=== PATIENT | female | born 1935 | race African-American/Black ===

== ENCOUNTER 2019-02-21 17:47 | Inpatient (IN) | payer MEDICARE ==
[~2019-02-21] VITALS: Ht 172.7 cm; Wt 72.6 kg
[2019-02-21 19:40] LABS: CLARITY URINE TURBID (CLEAR); COLOR URINE YELLOW (YELLOW); KETONES URINE NEGATIVE (NEGATIVE); LEUKOCYTE ESTERASE URINE 3+ (NEGATIVE); NITRITE URINE POSITIVE (NEGATIVE); OCCULT BLOOD URINE 2+ (NEGATIVE); PROTEIN URINE 1+ (NEGATIVE); SPECIFIC GRAVITY URINE 1.008 (1.005-1.030)
[2019-02-21 19:53] LABS: *AMPHETAMINES SCREEN URINE NEGATIVE (NEGATIVE); *BARBITURATES SCREEN URINE NEGATIVE (NEGATIVE)
[2019-02-21 19:53] LABS: CHLORIDE 102 mEq/L (98-107)
[2019-02-21 19:54] LABS: *BENZODIAZEPINES SCREEN URINE NEGATIVE (NEGATIVE); *COCAINE SCREEN URINE NEGATIVE (NEGATIVE); CANNABINOID URINE SCREEN NEGATIVE (NEGATIVE); METHADONE URINE SCREEN NEGATIVE (NEGATIVE); OPIATES URINE SCREEN NEGATIVE (NEGATIVE); PHENCYCLIDINE URINE SCREEN NEGATIVE (NEGATIVE)
[2019-02-21 19:57] LABS: INR 1.6; PARTIAL THROMBOPLASTIN TIME 33.3 sec (23.4-31.0); PROTHROMBIN TIME 16.4 sec (9.6-11.0)
[2019-02-21 19:58] LABS: ETHANOL BLOOD < 10 mg/dL
[2019-02-21] MEDS ORDERED: DILTIAZEM HCL 30MG TABLET PO ONE (20:00)
[2019-02-21] MEDS ORDERED: LEVOFLOXACIN 750MG PREMIX 150 ML IV ONE (20:00)
[2019-02-21 20:02] LABS: CREATINE KINASE 42 IU/L (26-192); LDL CHOLESTEROL 54 mg/dL (5-100)
[2019-02-21 20:04] LABS: HEMATOCRIT. 31.5 % (36.0-48.0); HEMOGLOBIN. 9.7 g/dL (12.0-16.0); MEAN CORPUSCULAR HEMOGLOBIN 24.5 pg (28.0-32.0); MEAN CORPUSCULAR VOLUME 79.4 fL (81.0-99.0); MEAN PLATELET VOLUME 8.6 fl (7.4-10.4); PLATELET 312 x1000/uL (130-400); RED BLOOD CELL COUNT 3.97 mill/uL (4.2-5.4); RED CELL DISTRIBUTION WIDTH 18.4 % (11.6-14.6)
[2019-02-21 20:05] LABS: CREATINE KINASE MB FRACTION 4.1 ng/mL (0.5-3.6)
[2019-02-21 21:22] LABS: PLATELET ESTIMATE NORMAL
[2019-02-21] MEDS ORDERED: IPRATROPIUM/ALBUTEROL 0.5-3(2.5)MG/3ML NEB NEB PRN (21:45)
[2019-02-21] MEDS ORDERED: CLONIDINE 0.1MG TABLET PO PRN (21:45)
[2019-02-21] MEDS ORDERED: NA PHOS,M-B/NA PHOS,DI-BA ENEMA 118ML PR PRN (21:45)
[2019-02-21] MEDS ORDERED: NITROGLYCERIN 0.4MG TABLET SL SL PRN (21:45)
[2019-02-21] MEDS ORDERED: ONDANSETRON HCL 4MG/2ML INJ IV PRN (21:45)
[2019-02-21] MEDS ORDERED: MAGNESIUM/ALUMINUM HYDROXIDE/SIMETHICONE 30ML UDC PO PRN (21:45)
[2019-02-21 22:45] LABS: T4 FREE 1.39 ng/dL (0.76-1.46)
[2019-02-21 23:10] LABS: VITAMIN B12 SERUM > 2000.0 pg/mL (211-911)
[2019-02-22 00:33] LABS: CREATINE KINASE MB FRACTION 3.7 ng/mL (0.5-3.6)
[2019-02-22 04:00] VITALS: BP 121/90
[2019-02-22 04:10] VITALS: BP 121/90
[2019-02-22] MEDS ORDERED: CEFTRIAXONE 1 G PREMIX 50 ML IV SCH (05:00)
[2019-02-22] MEDS ORDERED: AMLO2.5T45 MT (05:10)
[2019-02-22] MEDS ORDERED: DIGO250T79 MT (05:10)
[2019-02-22] MEDS ORDERED: QUET25TA34 MT (05:10)
[2019-02-22] MEDS ORDERED: TRAM50TA3 MT (05:10)
[2019-02-22] MEDS ORDERED: PANT40TA4 MT (05:10)
[2019-02-22] MEDS: ENOXAPARIN 80MG/0.8ML SYR SUBCUT SCH ×2 (05:45→16:00)
[2019-02-22] MEDS: DILTIAZEM HCL 60MG TABLET PO SCH ×3 (05:46→18:48)
[2019-02-22 08:00] VITALS: BP 119/85
[2019-02-22] MEDS: ASPIRIN 325MG EC TABLET PO SCH (08:57)
[2019-02-22] MEDS: ASCORBIC ACID 500 MG TABLET PO SCH ×2 (08:57→20:31)
[2019-02-22] MEDS: DOCUSATE SODIUM 100MG CAPSULE PO PRN (08:57)
[2019-02-22] MEDS: ZINC SULFATE 220 MG ( 50 ) CAPSULE PO SCH (08:58)
[2019-02-22] MEDS ORDERED: FAMOTIDINE 20MG TABLET PO SCH (09:00)
[2019-02-22 12:00] VITALS: BP 120/79
[2019-02-22 12:43] LABS: CREATINE KINASE MB FRACTION 4.6 ng/mL (0.5-3.6)
[2019-02-22 16:00] VITALS: BP 106/66
[2019-02-22] MEDS ORDERED: DIGOXIN 500MCG/2ML AMP IV NR (17:30)
[2019-02-22] MEDS: DIGOXIN 250MCG TABLET PO SCH (18:48)
[2019-02-22 20:00] VITALS: BP 111/74
[2019-02-22] MEDS: FAMOTIDINE 40MG TABLET PO SCH (20:32)
[2019-02-22] MEDS ORDERED: LEVOFLOXACIN 500MG PREMIX 100 ML IV SCH (22:00)
[2019-02-22] MEDS: LEVOFLOXACIN 500MG PREMIX 100 ML IV SCH (22:35)
[2019-02-23] VITALS: BP 122/71
[2019-02-23] MEDS: DILTIAZEM HCL 60MG TABLET PO SCH ×4 (00:40→18:35)
[2019-02-23 04:00] VITALS: BP 138/84
[2019-02-23] MEDS: ENOXAPARIN 80MG/0.8ML SYR SUBCUT SCH ×2 (06:08→13:51)
[2019-02-23] MEDS: CEFTRIAXONE 1 G PREMIX 50 ML IV SCH (06:34)
[2019-02-23 08:00] VITALS: BP 122/68
[2019-02-23] MEDS: ASPIRIN 325MG EC TABLET PO SCH (08:08)
[2019-02-23] MEDS: ASCORBIC ACID 500 MG TABLET PO SCH (08:11)
[2019-02-23] MEDS: FAMOTIDINE 40MG TABLET PO SCH (08:11)
[2019-02-23] MEDS: ZINC SULFATE 220 MG ( 50 ) CAPSULE PO SCH (08:11)
[2019-02-23 12:00] VITALS: BP 135/75
[2019-02-23 16:00] VITALS: BP 123/66
[2019-02-23 17:05] LABS: BASOPHILS % 0.2 % (0.0-2.0); EOSINOPHILS % 0.3 % (0.0-5.0); HEMATOCRIT. 30.8 % (36.0-48.0); LYMPHOCYTES % 7.9 % (20.0-50.0); MEAN CORPUSCULAR HEMOGLOBIN 24.3 pg (28.0-32.0); MEAN PLATELET VOLUME 8.4 fl (7.4-10.4); MONOCYTES % 4.5 % (2.0-8.0); NEUTROPHILS % 87.1 % (40.0-76.0); PLATELET 216 x1000/uL (130-400); RED BLOOD CELL COUNT 3.72 mill/uL (4.2-5.4); RED CELL DISTRIBUTION WIDTH 18.8 % (11.6-14.6)
[2019-02-23 17:10] LABS: CHLORIDE 109 mEq/L (98-107)
[2019-02-23 17:18] LABS: PHOSPHORUS 1.8 mg/dL (2.5-4.9)
[2019-02-23] MEDS: DIGOXIN 250MCG TABLET PO SCH (18:35)
[2019-02-23] MEDS ORDERED: MAGNESIUM 1 G PREMIX 100 ML IV NR (20:00)
[2019-02-23] MEDS ORDERED: SODIUM PHOS,M-BASIC-D-BASIC 20 MM in DEXT 5% WATER 243.3333 ML IV NR (20:00)
[2019-02-24 00:05] VITALS: BP 130/65
[2019-02-24] MEDS: LEVOFLOXACIN 500MG PREMIX 100 ML IV SCH ×2 (00:08→21:58)
[2019-02-24] MEDS: ASCORBIC ACID 500 MG TABLET PO SCH ×3 (00:08→21:58)
[2019-02-24] MEDS: DILTIAZEM HCL 60MG TABLET PO SCH ×4 (00:10→18:33)
[2019-02-24 04:00] VITALS: BP 136/62
[2019-02-24] MEDS: ENOXAPARIN 80MG/0.8ML SYR SUBCUT SCH ×2 (04:18→16:23)
[2019-02-24] MEDS: CEFTRIAXONE 1 G PREMIX 50 ML IV SCH (04:18)
[2019-02-24 08:00] VITALS: BP 159/66
[2019-02-24] MEDS: ACETAMINOPHEN 325MG TABLET PO PRN (08:15)
[2019-02-24] MEDS: FAMOTIDINE 40MG TABLET PO SCH (09:00)
[2019-02-24] MEDS: ZINC SULFATE 220 MG ( 50 ) CAPSULE PO SCH (09:26)
[2019-02-24] MEDS: ASPIRIN 325MG EC TABLET PO SCH (09:26)
[2019-02-24 12:00] VITALS: BP 133/71
[2019-02-24] MEDS ORDERED: MAGNESIUM 2 G PREMIX 50 ML IV SCH (13:00)
[2019-02-24 16:00] VITALS: BP 134/64
[2019-02-24] MEDS: SODIUM HYPOCHLORITE 0.125% 473ML SOLUTION TOP SCH (16:30)
[2019-02-24] MEDS: PANTOT AC/MIN OIL/PET HY-PHL OINT (AQUAPHOR) TOP SCH (16:31)
[2019-02-24] MEDS: DIGOXIN 250MCG TABLET PO SCH (18:32)
[2019-02-24 20:00] VITALS: BP 143/74
[2019-02-25] VITALS (7 sets, daily range): BP systolic 108–153; BP diastolic 60–86
[2019-02-25] MEDS: ENOXAPARIN 80MG/0.8ML SYR SUBCUT SCH ×2 (04:46→17:46)
[2019-02-25] MEDS: CEFTRIAXONE 1 G PREMIX 50 ML IV SCH (05:42)
[2019-02-25] MEDS: DILTIAZEM HCL 60MG TABLET PO SCH ×4 (05:42→17:29)
[2019-02-25] MEDS: FAMOTIDINE 40MG TABLET PO SCH (09:00)
[2019-02-25] MEDS: ZINC SULFATE 220 MG ( 50 ) CAPSULE PO SCH (09:36)
[2019-02-25] MEDS: ASCORBIC ACID 500 MG TABLET PO SCH ×2 (09:36→22:09)
[2019-02-25] MEDS: ASPIRIN 325MG EC TABLET PO SCH (09:36)
[2019-02-25] MEDS: SODIUM HYPOCHLORITE 0.125% 473ML SOLUTION TOP SCH (09:40)
[2019-02-25] MEDS: PANTOT AC/MIN OIL/PET HY-PHL OINT (AQUAPHOR) TOP SCH (09:40)
[2019-02-25 10:05] LABS: HEMATOCRIT. 33.9 % (36.0-48.0); HEMOGLOBIN. 10.7 g/dL (12.0-16.0); MEAN CORPUSCULAR HEMOGLOBIN 24.6 pg (28.0-32.0); MEAN PLATELET VOLUME 8.3 fl (7.4-10.4); PLATELET 242 x1000/uL (130-400); RED BLOOD CELL COUNT 4.35 mill/uL (4.2-5.4); RED CELL DISTRIBUTION WIDTH 18.6 % (11.6-14.6)
[2019-02-25 10:15] LABS: CHLORIDE 106 mEq/L (98-107)
[2019-02-25 10:20] LABS: PHOSPHORUS 2.1 mg/dL (2.5-4.9)
[2019-02-25 10:29] LABS: PLATELET ESTIMATE NORMAL
[2019-02-25] MEDS: MEROPENEM 1,000 MG in SODIUM CHLORIDE 0.9% 100 ML IV SCH (14:15)
[2019-02-25] MEDS: DIGOXIN 250MCG TABLET PO SCH (17:29)
[2019-02-25] MEDS ORDERED: MORPHINE SULFATE 2 MG/ML CPJ (NOT FOR IM USE) IV PRN (23:30)
[2019-02-26] VITALS: BP 147/70
[2019-02-26] MEDS ORDERED: METOCLOPRAMIDE HCL 10MG/2ML VIAL IV SCH
[2019-02-26] MEDS: DILTIAZEM HCL 60MG TABLET PO SCH ×4 (00:17→17:48)
[2019-02-26] MEDS: MEROPENEM 1,000 MG in SODIUM CHLORIDE 0.9% 100 ML IV SCH ×2 (00:17→13:51)
[2019-02-26 04:00] VITALS: BP 144/69
[2019-02-26] MEDS: ENOXAPARIN 80MG/0.8ML SYR SUBCUT SCH ×2 (04:38→15:41)
[2019-02-26 08:00] VITALS: BP 144/72
[2019-02-26] MEDS: FAMOTIDINE 40MG TABLET PO SCH (09:00)
[2019-02-26] MEDS ORDERED: REGADENOSON 0.4 MG/5 ML IV NR (09:00)
[2019-02-26] MEDS: ZINC SULFATE 220 MG ( 50 ) CAPSULE PO SCH (09:59)
[2019-02-26] MEDS: ASPIRIN 325MG EC TABLET PO SCH (09:59)
[2019-02-26] MEDS: SODIUM HYPOCHLORITE 0.125% 473ML SOLUTION TOP SCH (09:59)
[2019-02-26] MEDS: PANTOT AC/MIN OIL/PET HY-PHL OINT (AQUAPHOR) TOP SCH (09:59)
[2019-02-26] MEDS: ASCORBIC ACID 500 MG TABLET PO SCH ×2 (09:59→21:16)
[2019-02-26 12:00] VITALS: BP 123/66
[2019-02-26 16:00] VITALS: BP 124/57
[2019-02-26 20:00] VITALS: BP 107/86
[2019-02-27] MEDS: DILTIAZEM HCL 60MG TABLET PO SCH ×5 (00:06→23:17)
[2019-02-27] MEDS: MEROPENEM 1,000 MG in SODIUM CHLORIDE 0.9% 100 ML IV SCH ×2 (00:08→13:00)
[2019-02-27 00:18] VITALS: BP 141/65
[2019-02-27] MEDS: ENOXAPARIN 80MG/0.8ML SYR SUBCUT SCH ×2 (03:24→16:38)
[2019-02-27 04:00] VITALS: BP 141/70
[2019-02-27 08:00] VITALS: BP 124/57
[2019-02-27] MEDS: ASPIRIN 325MG EC TABLET PO SCH (09:00)
[2019-02-27] MEDS: ASCORBIC ACID 500 MG TABLET PO SCH ×2 (09:00→23:14)
[2019-02-27] MEDS: ZINC SULFATE 220 MG ( 50 ) CAPSULE PO SCH (09:00)
[2019-02-27] MEDS: FAMOTIDINE 40MG TABLET PO SCH (09:00)
[2019-02-27 10:29] LABS: HEMATOCRIT. 28.1 % (36.0-48.0); HEMOGLOBIN. 8.9 g/dL (12.0-16.0); MEAN CORPUSCULAR HEMOGLOBIN 24.4 pg (28.0-32.0); MEAN CORPUSCULAR VOLUME 77.1 fL (81.0-99.0); PLATELET 204 x1000/uL (130-400); RED BLOOD CELL COUNT 3.65 mill/uL (4.2-5.4)
[2019-02-27 10:47] LABS: CHLORIDE 106 mEq/L (98-107)
[2019-02-27] MEDS: PANTOT AC/MIN OIL/PET HY-PHL OINT (AQUAPHOR) TOP SCH (11:08)
[2019-02-27] MEDS: SODIUM HYPOCHLORITE 0.125% 473ML SOLUTION TOP SCH (11:08)
[2019-02-27 11:39] LABS: PLATELET ESTIMATE NORMAL
[2019-02-27 12:00] VITALS: BP 147/78
[2019-02-27] MEDS ORDERED: ROCURONIUM BROMIDE 10MG/ML VIAL 5ML IV ONE (12:23)
[2019-02-27] MEDS ORDERED: MIDAZOLAM HCL 2 MG/2 ML VIAL ONE (12:39)
[2019-02-27] MEDS ORDERED: DEXAMETHASONE 4MG/ML 1ML VIAL ONE (12:48)
[2019-02-27] MEDS ORDERED: LEVOFLOXACIN 500MG PREMIX 100 ML IV ONE (12:52)
[2019-02-27] MEDS ORDERED: EPHEDRINE SULFATE 50MG/ML VIAL ONE (12:56)
[2019-02-27] MEDS ORDERED: ONDANSETRON HCL 4MG/2ML INJ ONE (13:36)
[2019-02-27] MEDS ORDERED: HYDRALAZINE 20MG/ML VIAL ONE (14:05)
[2019-02-27 16:00] VITALS: BP 133/71
[2019-02-27 20:00] VITALS: BP 101/48
[2019-02-28] VITALS (7 sets, daily range): BP systolic 101–127; BP diastolic 43–65
[2019-02-28] MEDS: MEROPENEM 1,000 MG in SODIUM CHLORIDE 0.9% 100 ML IV SCH ×2 (00:29→13:28)
[2019-02-28] MEDS: ENOXAPARIN 80MG/0.8ML SYR SUBCUT SCH ×2 (05:21→19:11)
[2019-02-28] MEDS: DILTIAZEM HCL 60MG TABLET PO SCH ×3 (05:24→19:31)
[2019-02-28] MEDS: DOCUSATE SODIUM 100MG CAPSULE PO PRN (09:33)
[2019-02-28] MEDS: FAMOTIDINE 20MG TABLET PO SCH (09:34)
[2019-02-28] MEDS: ZINC SULFATE 220 MG ( 50 ) CAPSULE PO SCH (09:34)
[2019-02-28] MEDS: ASPIRIN 325MG EC TABLET PO SCH (09:34)
[2019-02-28] MEDS: ASCORBIC ACID 500 MG TABLET PO SCH ×2 (09:34→22:28)
[2019-02-28] MEDS: SODIUM HYPOCHLORITE 0.125% 473ML SOLUTION TOP SCH (11:45)
[2019-02-28 17:54] LABS: CHLORIDE 110 mEq/L (98-107)
[2019-02-28 17:57] LABS: HEMATOCRIT. 24.4 % (36.0-48.0); HEMOGLOBIN. 7.5 g/dL (12.0-16.0); MEAN CORPUSCULAR HEMOGLOBIN 23.9 pg (28.0-32.0); MEAN CORPUSCULAR VOLUME 77.5 fL (81.0-99.0); MEAN PLATELET VOLUME 9.1 fl (7.4-10.4); PLATELET 149 x1000/uL (130-400); RED BLOOD CELL COUNT 3.14 mill/uL (4.2-5.4); RED CELL DISTRIBUTION WIDTH 19.3 % (11.6-14.6)
[2019-02-28 18:46] LABS: PLATELET ESTIMATE NORMAL
[2019-03-01] VITALS: BP 114/50
[2019-03-01] MEDS: DILTIAZEM HCL 60MG TABLET PO SCH ×4 (00:20→18:12)
[2019-03-01] MEDS: MEROPENEM 1,000 MG in SODIUM CHLORIDE 0.9% 100 ML IV SCH ×2 (00:55→12:36)
[2019-03-01 04:00] VITALS: BP 131/87
[2019-03-01] MEDS: ENOXAPARIN 80MG/0.8ML SYR SUBCUT SCH ×2 (05:37→16:47)
[2019-03-01 08:00] VITALS: BP 101/61
[2019-03-01] MEDS: ZINC SULFATE 220 MG ( 50 ) CAPSULE PO SCH (08:31)
[2019-03-01] MEDS: SODIUM HYPOCHLORITE 0.125% 473ML SOLUTION TOP SCH (08:31)
[2019-03-01] MEDS: ASPIRIN 325MG EC TABLET PO SCH (08:31)
[2019-03-01] MEDS: FAMOTIDINE 20MG TABLET PO SCH (08:31)
[2019-03-01] MEDS: ASCORBIC ACID 500 MG TABLET PO SCH ×2 (08:31→21:09)
[2019-03-01] MEDS: PANTOT AC/MIN OIL/PET HY-PHL OINT (AQUAPHOR) TOP SCH (08:37)
[2019-03-01 12:00] VITALS: BP 120/65
[2019-03-01 16:00] VITALS: BP 122/58
[2019-03-01 20:00] VITALS: BP 124/63
[2019-03-02] VITALS: BP 140/60
[2019-03-02] MEDS: DILTIAZEM HCL 60MG TABLET PO SCH ×5 (01:04→19:13)
[2019-03-02] MEDS: MEROPENEM 1,000 MG in SODIUM CHLORIDE 0.9% 100 ML IV SCH ×2 (01:06→12:53)
[2019-03-02 04:00] VITALS: BP 136/70
[2019-03-02] MEDS: ENOXAPARIN 80MG/0.8ML SYR SUBCUT SCH ×2 (04:57→16:00)
[2019-03-02 08:00] VITALS: BP 124/69
[2019-03-02] MEDS: FAMOTIDINE 20MG TABLET PO SCH (09:58)
[2019-03-02] MEDS: ASPIRIN 325MG EC TABLET PO SCH (09:58)
[2019-03-02] MEDS: ASCORBIC ACID 500 MG TABLET PO SCH ×2 (09:58→21:53)
[2019-03-02] MEDS: ZINC SULFATE 220 MG ( 50 ) CAPSULE PO SCH (09:58)
[2019-03-02] MEDS: SODIUM HYPOCHLORITE 0.125% 473ML SOLUTION TOP SCH (10:14)
[2019-03-02] MEDS: PANTOT AC/MIN OIL/PET HY-PHL OINT (AQUAPHOR) TOP SCH (10:18)
[2019-03-02 12:00] VITALS: BP 118/72
[2019-03-02] MEDS: ACETAMINOPHEN 325MG TABLET PO PRN (12:54)
[2019-03-02] MEDS: GUAIFENESIN 200MG/10ML SUGAR FREE UDC PO PRN (13:00)
[2019-03-02 16:00] VITALS: BP 135/65
[2019-03-02 20:00] VITALS: BP 139/63
[2019-03-03] VITALS (9 sets, daily range): BP systolic 120–151; BP diastolic 63–76
[2019-03-03] MEDS: MEROPENEM 1,000 MG in SODIUM CHLORIDE 0.9% 100 ML IV SCH ×2 (00:17→13:19)
[2019-03-03] MEDS: DILTIAZEM HCL 60MG TABLET PO SCH ×4 (00:17→18:15)
[2019-03-03] MEDS: ACETAMINOPHEN 325MG TABLET PO PRN ×2 (01:23→16:40)
[2019-03-03] MEDS: GUAIFENESIN 200MG/10ML SUGAR FREE UDC PO PRN ×2 (01:41→10:18)
[2019-03-03] MEDS: ENOXAPARIN 80MG/0.8ML SYR SUBCUT SCH (04:00)
[2019-03-03] MEDS: ASPIRIN 325MG EC TABLET PO SCH (09:00)
[2019-03-03] MEDS: ASCORBIC ACID 500 MG TABLET PO SCH (09:00)
[2019-03-03 09:25] LABS: MEAN CORPUSCULAR HEMOGLOBIN 24.2 pg (28.0-32.0); MEAN CORPUSCULAR VOLUME 77.4 fL (81.0-99.0); MEAN PLATELET VOLUME 9.2 fl (7.4-10.4); PLATELET 156 x1000/uL (130-400); RED BLOOD CELL COUNT 2.58 mill/uL (4.2-5.4); RED CELL DISTRIBUTION WIDTH 19.7 % (11.6-14.6)
[2019-03-03 09:33] LABS: INR 1.2; PROTHROMBIN TIME 12.1 sec (9.6-11.0)
[2019-03-03 09:42] LABS: CHLORIDE 114 mEq/L (98-107); HEMOGLOBIN. 6.2 g/dL (12.0-16.0)
[2019-03-03] MEDS: FAMOTIDINE 20MG TABLET PO SCH (10:08)
[2019-03-03] MEDS: ZINC SULFATE 220 MG ( 50 ) CAPSULE PO SCH (10:15)
[2019-03-03] MEDS: SODIUM HYPOCHLORITE 0.125% 473ML SOLUTION TOP SCH (10:25)
[2019-03-03 11:13] LABS: NUCLEATED RED BLOOD CELLS 1 /100 WBC; PLATELET ESTIMATE NORMAL
[2019-03-03] MEDS: PANTOT AC/MIN OIL/PET HY-PHL OINT (AQUAPHOR) TOP SCH (16:40)
[2019-03-03] MEDS: GENTAMICIN 80MG PREMIX 100 ML IV SCH (18:14)
[2019-03-03 19:51] LABS: HEMATOCRIT 23.2 % (36.0-48.0); HEMOGLOBIN 7.2 g/dL (12.0-16.0)
[2019-03-03 19:58] LABS: INR 1.2; PROTHROMBIN TIME 12.4 sec (9.6-11.0)
[2019-03-04] VITALS: BP 118/71
[2019-03-04] MEDS: MEROPENEM 1,000 MG in SODIUM CHLORIDE 0.9% 100 ML IV SCH ×2 (01:27→13:47)
[2019-03-04] MEDS: DILTIAZEM HCL 60MG TABLET PO SCH ×4 (01:27→18:21)
[2019-03-04] MEDS: GENTAMICIN 80MG PREMIX 100 ML IV SCH ×3 (01:28→18:20)
[2019-03-04 04:00] VITALS: BP 129/68
[2019-03-04 07:17] LABS: HEMATOCRIT. 25.6 % (36.0-48.0); HEMOGLOBIN. 8.1 g/dL (12.0-16.0); MEAN CORPUSCULAR HEMOGLOBIN 24.6 pg (28.0-32.0); MEAN CORPUSCULAR VOLUME 77.9 fL (81.0-99.0); MEAN PLATELET VOLUME 10.2 fl (7.4-10.4); PLATELET 140 x1000/uL (130-400); RED BLOOD CELL COUNT 3.28 mill/uL (4.2-5.4); RED CELL DISTRIBUTION WIDTH 19.1 % (11.6-14.6)
[2019-03-04 08:00] VITALS: BP 139/69
[2019-03-04] MEDS: ZINC SULFATE 220 MG ( 50 ) CAPSULE PO SCH (09:47)
[2019-03-04] MEDS: GUAIFENESIN 200MG/10ML SUGAR FREE UDC PO PRN (09:47)
[2019-03-04] MEDS: FAMOTIDINE 20MG TABLET PO SCH (09:47)
[2019-03-04] MEDS: ACETAMINOPHEN 325MG TABLET PO PRN ×2 (09:47→13:48)
[2019-03-04] MEDS: PANTOT AC/MIN OIL/PET HY-PHL OINT (AQUAPHOR) TOP SCH (09:48)
[2019-03-04 09:53] LABS: CHLORIDE 113 mEq/L (98-107)
[2019-03-04] MEDS: SODIUM HYPOCHLORITE 0.125% 473ML SOLUTION TOP SCH (10:39)
[2019-03-04 12:00] VITALS: BP 134/85
[2019-03-04 15:06] LABS: PLATELET ESTIMATE NORMAL
[2019-03-04 16:00] VITALS: BP 112/57
[2019-03-04 20:00] VITALS: BP 144/67
[2019-03-05] VITALS: BP 148/76
[2019-03-05] MEDS: GENTAMICIN 80MG PREMIX 100 ML IV SCH ×3 (01:11→18:10)
[2019-03-05] MEDS: DILTIAZEM HCL 60MG TABLET PO SCH ×4 (01:11→18:10)
[2019-03-05 04:00] VITALS: BP 147/78
[2019-03-05 08:00] VITALS: BP 145/100
[2019-03-05] MEDS: FAMOTIDINE 20MG TABLET PO SCH (09:45)
[2019-03-05] MEDS: PANTOT AC/MIN OIL/PET HY-PHL OINT (AQUAPHOR) TOP SCH (09:45)
[2019-03-05] MEDS: ZINC SULFATE 220 MG ( 50 ) CAPSULE PO SCH (09:45)
[2019-03-05] MEDS: SODIUM HYPOCHLORITE 0.125% 473ML SOLUTION TOP SCH (09:46)
[2019-03-05 12:00] VITALS: BP 140/72
[2019-03-05 16:00] VITALS: BP 142/68
[2019-03-05] MEDS: FERROUS SULFATE 325MG TABLET PO SCH (18:10)
[2019-03-05 20:00] VITALS: BP 140/74
[2019-03-06] VITALS: BP 147/80
[2019-03-06] MEDS: DILTIAZEM HCL 60MG TABLET PO SCH ×4 (00:46→16:56)
[2019-03-06] MEDS: GENTAMICIN 80MG PREMIX 100 ML IV SCH ×3 (00:47→16:56)
[2019-03-06 04:00] VITALS: BP 137/82
[2019-03-06 08:00] VITALS: BP 148/92
[2019-03-06] MEDS: FAMOTIDINE 20MG TABLET PO SCH (08:11)
[2019-03-06] MEDS: ZINC SULFATE 220 MG ( 50 ) CAPSULE PO SCH (08:11)
[2019-03-06] MEDS: PANTOT AC/MIN OIL/PET HY-PHL OINT (AQUAPHOR) TOP SCH (08:11)
[2019-03-06] MEDS: FERROUS SULFATE 325MG TABLET PO SCH ×3 (08:11→16:56)
[2019-03-06] MEDS: SODIUM HYPOCHLORITE 0.125% 473ML SOLUTION TOP SCH (08:12)
[2019-03-06 12:00] VITALS: BP 146/82
[2019-03-06 16:00] VITALS: BP 131/65
[2019-03-06 20:00] VITALS: BP 112/57
[2019-03-07] VITALS (8 sets, daily range): BP systolic 115–159; BP diastolic 60–92
[2019-03-07] MEDS: DILTIAZEM HCL 60MG TABLET PO SCH ×4 (01:06→18:21)
[2019-03-07] MEDS: GENTAMICIN 80MG PREMIX 100 ML IV SCH ×3 (01:06→17:00)
[2019-03-07] MEDS: FERROUS SULFATE 325MG TABLET PO SCH ×3 (08:10→18:21)
[2019-03-07] MEDS: FAMOTIDINE 20MG TABLET PO SCH (09:00)
[2019-03-07] MEDS: ZINC SULFATE 220 MG ( 50 ) CAPSULE PO SCH (09:00)
[2019-03-07] MEDS: SODIUM HYPOCHLORITE 0.125% 473ML SOLUTION TOP SCH (09:19)
[2019-03-07] MEDS: PANTOT AC/MIN OIL/PET HY-PHL OINT (AQUAPHOR) TOP SCH (09:19)
[2019-03-07] MEDS ORDERED: ENOXAPARIN 60MG/0.6ML SYR SUBCUT SCH (10:45)
[2019-03-07] MEDS ORDERED: APIXABAN 5 MG TABLET PO SCH ×2 (12:15→17:00)
== END 2019-03-07 21:39 | DRG 853 ==
LOC: ER 17:47 → EDBD 21:27 → 7WST 21:27 → EDBEDREQTM 21:30 → EDBEDREQ 21:30 → SUPCPDRO 21:42 → EDBEDREQSVC 23:37 → ENRESERV 02-22 03:15
PROVIDERS: ADMIT Internal Medicine; ATTEND Internal Medicine
PROC: 0TC78ZZ Extirpation of Matter from Left Ureter, Via Natural or Artificial Opening Endoscopic (ICD-10-PCS; principal; 2019-02-27)
PROC: 0T778DZ Dilation of Left Ureter with Intraluminal Device, Via Natural or Artificial Opening Endoscopic (ICD-10-PCS; 2019-02-27)
DX: A41.59 Other Gram-negative sepsis (principal); L89.154 Pressure ulcer of sacral region, stage 4; G92 Toxic encephalopathy; E43 Unspecified severe protein-calorie malnutrition; I42.9 Cardiomyopathy, unspecified; N13.6 Pyonephrosis; Z16.21 Resistance to vancomycin; R74.0 Nonspecific elevation of levels of transaminase and lactic acid dehydrogenase [LDH]; L89.899 Pressure ulcer of other site, unspecified stage; R65.20 Severe sepsis without septic shock; D63.8 Anemia in other chronic diseases classified elsewhere; L89.629 Pressure ulcer of left heel, unspecified stage; E11.42 Type 2 diabetes mellitus with diabetic polyneuropathy; M24.572 Contracture, left ankle; M24.571 Contracture, right ankle; I50.9 Heart failure, unspecified; I48.91 Unspecified atrial fibrillation; K76.9 Liver disease, unspecified; F03.90 Unspecified dementia, unspecified severity, without behavioral disturbance, psychotic disturbance, mood disturbance, and anxiety; B95.2 Enterococcus as the cause of diseases classified elsewhere; D50.9 Iron deficiency anemia, unspecified; E83.39 Other disorders of phosphorus metabolism; E83.42 Hypomagnesemia; I08.1 Rheumatic disorders of both mitral and tricuspid valves; I27.29 Other secondary pulmonary hypertension; I27.81 Cor pulmonale (chronic); Z91.19 Patient's noncompliance with other medical treatment and regimen; Z74.01 Bed confinement status; Z87.891 Personal history of nicotine dependence; Z86.718 Personal history of other venous thrombosis and embolism; Z88.0 Allergy status to penicillin; Z68.24 Body mass index [BMI] 24.0-24.9, adult; Z79.899 Other long term (current) drug therapy
CPT/HCPCS: 36415; 71045; 74176; 74430; 76700; 76770; 80048; 80053; 80061; 80162; 80305; 80320; 81003; 82550; 82553; 82607; 82746; 82962; 83036; 83540; 83550; 83605; 83721; 83735; 83880; 84100; 84134; 84439; 84443; 84484; 85014; 85018; 85025; 85049; 85384; 86850; 86900; 86920; 87077; 87186; 93005; 93306; 93970; 99285; A6261; C1769; C2617; J0360; J0696; J1100; J1160; J1580; J1650; J1956; J2185; J2250; J2405; J3475; J3490; J7040; J7050; J7060; P9021; A4315; G0480